=== PATIENT | male | born 1995 | race Caucasian/White ===

== ENCOUNTER 2020-01-09 14:38 | Inpatient (IN) | payer OTHER ==
[~2020-01-09] VITALS: Ht 172.7 cm; Wt 76.8 kg
[2020-01-09 14:38] VITALS: BP 129/85
[2020-01-09 15:13] LABS: HEMATOCRIT 40.5 % (42.0-52.0); HEMOGLOBIN 14.4 gm/dL (14.0-18.0); MCH 31.1 pg (26.0-34.0); MCHC 35.5 g/dL (28.0-37.0); MCV 87.5 fL (80.0-100.0); PLATELET COUNT 171 thou/uL (150-400); RBC 4.63 mil/uL (4.50-6.00); WBC 7.8 thou/uL (4.0-11.0)
[2020-01-09] MEDS ORDERED: ONDANSETRON HCL4 M2 PO (15:13)
[2020-01-09 15:14] LABS: URINE BILIRUBIN 1+ (Negative); URINE BLOOD NEGATIVE (Negative); URINE CLARITY CLEAR; URINE COLOR YELLOW; URINE GLUCOSE-RANDOM* NEGATIVE (Negative); URINE KETONES NEGATIVE (Negative); URINE LEUKOCYTES-REFLEX NEGATIVE (Negative); URINE NITRITE-REFLEX NEGATIVE (Negative); URINE PROTEIN (DIPSTICK) NEGATIVE (Negative); URINE SPECIFIC GRAVITY <= 1.005 (1.005-1.035)
[2020-01-09 15:17] LABS: ICTOTEST (BILI CONFIRMATORY) Positive (Negative)
[2020-01-09 15:20] LABS: CALCIUM 8.9 mg/dL (8.5-10.1); CREATININE 0.9 mg/dL (0.7-1.3); POTASSIUM 3.2 mmol/L (3.5-5.1)
[2020-01-09 15:26] LABS: ALBUMIN 3.5 g/dL (3.4-5.0); TOTAL BILIRUBIN 8.7 mg/dL (<0.1-1.0); TOTAL PROTEIN 7.7 g/dL (6.4-8.2)
[2020-01-09 16:14] LABS: ABSOLUTE NEUTROPHILS 1.8 thou/uL (1.4-8.2); ATYPICAL LYMPHS 3 %
[2020-01-09 16:16] LABS: ANISOCYTOSIS 1+
[2020-01-09 17:43] LABS: AMP/METHAMP Negative (Negative); BARBITURATES Negative (Negative); BENZODIAZEPINES Negative (Negative); COCAINE Negative (Negative); METHADONE Negative (Negative); OPIATES Negative (Negative); PCP Negative (Negative)
[2020-01-09 18:40] VITALS: BP 126/78
--- NOTE | 2020-01-09 18:40 | NUR ---
HAND OFF TOOL SENT TO 349
[2020-01-09 18:55] VITALS: BP 121/86
[2020-01-09 19:05] LABS: INR 1.1; PROTIME 11.3 Seconds (9.3-11.4)
[2020-01-09 19:55] VITALS: BP 121/86
--- NOTE | 2020-01-09 21:15 | NUR ---
ADMISSION NOTE: ALERT AND ORIENTED KEENLY ALERT YOUNG MAN. HE STATED THAT HE HAS TAKEN MANY TYLENOL THIS WEEK FOR ONGOING HEADACHES. HE NOTICED THAT HE WAS YELLOWISH AND CAME TO THE EMERGENCY DEPT. HE IS CALM AND COOPERATIVE. ORIENTED TO ROOM AND SURROUNDINGS. CAREPLAN STARTED,
[2020-01-10 04:35] VITALS: BP 110/77
[2020-01-10 04:57] LABS: HEMATOCRIT 36.8 % (42.0-52.0); HEMOGLOBIN 12.8 gm/dL (14.0-18.0); MCH 30.9 pg (26.0-34.0); MCHC 34.7 g/dL (28.0-37.0); MCV 89.2 fL (80.0-100.0); PLATELET COUNT 153 thou/uL (150-400); RBC 4.13 mil/uL (4.50-6.00); RDW 13.3 % (10.5-14.5); WBC 6.2 thou/uL (4.0-11.0)
[2020-01-10 05:09] LABS: INR 1.1; PROTIME 11.6 Seconds (9.3-11.4)
[2020-01-10 05:10] LABS: DIRECT BILIRUBIN 5.2 mg/dL (<0.1-0.2); PHOSPHORUS 3.6 mg/dL (2.5-4.9); TOTAL BILIRUBIN 6.7 mg/dL (<0.1-1.0)
[2020-01-10 05:22] LABS: CALCIUM 8.1 mg/dL (8.5-10.1); CREATININE 0.9 mg/dL (0.7-1.3); MAGNESIUM 2.2 mg/dL (1.8-2.4); POTASSIUM 3.5 mmol/L (3.5-5.1); TOTAL BILIRUBIN 6.8 mg/dL (<0.1-1.0); TOTAL PROTEIN 6.6 g/dL (6.4-8.2)
--- NOTE | 2020-01-10 06:05 | NUR ---
RESTING THIS AM. CALM AND COOPERATIVE TONIGHT. DENIES PAIN. TEMPERATURE MAX 99.1. NO CONCERNS AT THIS TIME
[2020-01-10 08:45] VITALS: BP 137/85
[2020-01-10 09:15] LABS: ABSOLUTE NEUTROPHILS 1.6 thou/uL (1.4-8.2); ATYPICAL LYMPHS 10 %
[2020-01-10 09:19] LABS: ANISOCYTOSIS SLIGHT
[2020-01-10 12:08] LABS: HEP B SURFACE Ab(ANTI-HBS Non Reactive (()); HEPATITIS B SURFACE AG Negative (Negative); HEPATITIS C VIRUS AB <0.1 (0.0-0.9)
--- NOTE | 2020-01-10 13:29 | NUR ---
PT CARE ASSUMED AT 0700, PT ALERT AND ORIENTED X4, DENIES NAUSEA, VOMITING AND CHEST PAIN.NO SIGNS OF DISTRESS NOR FEVER NOTED. PT DENIES ANY NEEDS AT THE MOMENT. CALL LIGHT AND TABLE IN REACH. WILL CONTINUE TO MONITOR.
[2020-01-10 15:45] VITALS: BP 122/84
--- NOTE | 2020-01-10 16:54 | NUR ---
PT TRANSFERED TO [facility], ALL BELONGING PACKED AND SENT. REPORT GIVEN TO KATHY
[2020-01-10 17:39] VITALS: BP 117/71
--- NOTE | 2020-01-10 18:29 | NUR ---
Pt transferred from 3W. A&ox4. Up ad lowell. Denies pain. IVF infusing. Will give report to noc RN. Call light within reach.
[2020-01-10 19:05] VITALS: BP 119/84
--- NOTE | 2020-01-11 03:35 | NUR ---
PT IS PLEASANT. UP AD ELIZABETH IN ROOM. DENIES ANY NAUSEA. AFEBRILE. DENIES PAIN. CONTINUES ON IVF.NO OTHER CONCERNS AT THIS TIME.
[2020-01-11 05:01] VITALS: BP 116/70
[2020-01-11 08:12] VITALS: BP 115/70
[2020-01-11 13:07] VITALS: BP 115/70
--- NOTE | 2020-01-11 13:23 | NUR ---
Assumed pt care at 7am.Pt in and out of bed indepenedently.Assessment completed.vss.Pt wanted to dc home today if possible.Dr Lea and Guevara rounded on pt.Hepatic function panel to be resulted today before dc.Pt wanted doctor's release paper before dc home today.Dr Lea notified.He said that will be done whenever pt ready for discharge.Will continue to monitor.
[2020-01-11] MEDS ORDERED: WORK EXCUSE (13:37)
[2020-01-11 14:07] LABS: INR 1.1; PROTIME 11.4 Seconds (9.3-11.4)
[2020-01-11 14:08] LABS: ALBUMIN 3.2 g/dL (3.4-5.0); DIRECT BILIRUBIN 4.2 mg/dL (<0.1-0.2); TOTAL PROTEIN 7.4 g/dL (6.4-8.2)
[2020-01-11 14:09] LABS: TOTAL BILIRUBIN 5.3 mg/dL (<0.1-1.0)
[2020-01-11 14:22] VITALS: BP 115/70
[2020-01-11 16:07] LABS: ANTI-EBNA <18.0 U/mL (0.0-17.9); ANTI-VCA/IgG <18.0 U/mL (0.0-17.9); ANTI-VCA/IgM >160.0 U/mL (0.0-35.9)
[2020-01-13 15:08] LABS: EBV DNA log10 PCR 3.471 (())
== END 2020-01-11 15:36 | disposition home or self-care (01) | DRG 442 ==
LOC: ER 14:38 → EROBS 17:28 → 3W 17:28 → 4S 01-10 16:47
PROVIDERS: Emergency Medicine; Internal Medicine Gastroenterology; Nurse Practitioner; ADMIT Internal Medicine
DX: B15.9 Hepatitis A without hepatic coma (principal); E72.20 Disorder of urea cycle metabolism, unspecified; R17 Unspecified jaundice; E87.6 Hypokalemia; R50.9 Fever, unspecified; E80.6 Other disorders of bilirubin metabolism; R74.0 Nonspecific elevation of levels of transaminase and lactic acid dehydrogenase [LDH]; F12.90 Cannabis use, unspecified, uncomplicated; Z20.828 Contact with and (suspected) exposure to other viral communicable diseases; K59.00 Constipation, unspecified; R16.1 Splenomegaly, not elsewhere classified; D72.820 Lymphocytosis (symptomatic); Z82.49 Family history of ischemic heart disease and other diseases of the circulatory system; Z79.899 Other long term (current) drug therapy
CPT/HCPCS: 10080; 10102; 10879